=== PATIENT | female | born 1975 | race Caucasian/White ===

== ENCOUNTER 2019-12-24 04:39 | Emergency (ER) | payer MEDICAID ==
[~2019-12-24] VITALS: Ht 167.6 cm; Wt 87.0 kg
[2019-12-24] MEDS ORDERED: ONDANSETRON 4MG ODT PO STA (04:53)
[2019-12-24 05:14] LABS: CHLORIDE 108 mEq/L (98-107)
[2019-12-24 05:17] LABS: BASOPHILS % 0.2 % (0.0-2.0); EOSINOPHILS % 0.1 % (0.0-5.0); HEMATOCRIT. 34.4 % (36.0-48.0); HEMOGLOBIN. 10.7 g/dL (12.0-16.0); LYMPHOCYTES % 9.2 % (20.0-50.0); MEAN CORPUSCULAR HEMOGLOBIN 24.6 pg (28.0-32.0); MEAN CORPUSCULAR VOLUME 78.9 fL (81.0-99.0); MEAN PLATELET VOLUME 7.6 fl (7.4-10.4); NEUTROPHILS % 86.5 % (40.0-76.0); PLATELET 339 x1000/uL (130-400); RED BLOOD CELL COUNT 4.35 mill/uL (4.2-5.4); RED CELL DISTRIBUTION WIDTH 18.3 % (11.6-14.6)
[2019-12-24 05:18] LABS: ETHANOL BLOOD 206 mg/dL
[2019-12-24 05:50] LABS: CLARITY URINE CLEAR (CLEAR); COLOR URINE YELLOW (YELLOW); KETONES URINE NEGATIVE (NEGATIVE); LEUKOCYTE ESTERASE URINE NEGATIVE (NEGATIVE); NITRITE URINE NEGATIVE (NEGATIVE); OCCULT BLOOD URINE NEGATIVE (NEGATIVE); PROTEIN URINE NEGATIVE (NEGATIVE); UROBILINOGEN URINE 0.2 E.U./dL (0.2-1.0)
[2019-12-24 06:00] LABS: *AMPHETAMINES SCREEN URINE NEGATIVE (NEGATIVE)
[2019-12-24 06:01] LABS: *BARBITURATES SCREEN URINE NEGATIVE (NEGATIVE); *BENZODIAZEPINES SCREEN URINE NEGATIVE (NEGATIVE); *COCAINE SCREEN URINE NEGATIVE (NEGATIVE); METHADONE URINE SCREEN NEGATIVE (NEGATIVE); OPIATES URINE SCREEN NEGATIVE (NEGATIVE); PHENCYCLIDINE URINE SCREEN NEGATIVE (NEGATIVE)
[2019-12-24 06:02] LABS: CANNABINOID URINE SCREEN NEGATIVE (NEGATIVE)
[2019-12-24] MEDS ORDERED: SODIUM CHLORIDE 0.9% 1,000 ML IV ONE ×2 (06:45→08:30)
[2019-12-24] MEDS ORDERED: ACETAMINOPHEN 325MG TABLET PO ONE (06:45)
[2019-12-24] MEDS ORDERED: PHENAZOPYRIDINE HCL 100MG TABLET PO ONE (06:45)
[2019-12-24] MEDS ORDERED: CEPHALEXIN 250MG CAPSULE PO ONE (06:45)
[2019-12-24] MEDS ORDERED: CEFTRIAXONE 1 G PREMIX 50 ML IV ONE (09:00)
[2019-12-24 12:31] VITALS: BP 145/95
== END 2019-12-24 12:35 | disposition home or self-care (01) ==
LOC: ER 04:39
DX: R30.0 Dysuria (principal); E87.2 Acidosis; N39.0 Urinary tract infection, site not specified; F10.129 Alcohol abuse with intoxication, unspecified; Y90.7 Blood alcohol level of 200-239 mg/100 ml
CPT/HCPCS: 36415; 80053; 80305; 80320; 81003; 81025; 83605; 83690; 85025; 96361; 96365; 99285; J0696; J7030; Q0162; G0480

== ENCOUNTER 2023-11-12 16:35 | Emergency (ER) | payer SELFPAY ==
[~2023-11-12] VITALS: Ht 149.9 cm; Wt 86.0 kg
[~2023-11-12 16:35] MED LIST: IBUP-2030 PO; METR-167 PO
[2023-11-12 16:58] VITALS: O2SAT 100
[2023-11-12 17:23] LABS: HEMATOCRIT 32.7 % (36.0-48.0); MEAN CORPUSCULAR HEMOGLOBIN 21.8 pg (28.0-32.0); MEAN CORPUSCULAR HGB CONC 30.5 g/dL (31.0-37.0); MEAN CORPUSCULAR VOLUME 71.6 fL (81.0-99.0); PLATELET 405 x1000/uL (130-400); RED BLOOD CELL COUNT 4.57 mill/uL (4.2-5.4); RED CELL DISTRIBUTION WIDTH 22.3 % (11.6-14.6); WHITE BLOOD COUNT 9.8 x1000/uL (4.5-11.0)
[2023-11-12 17:30] LABS: CHLORIDE 101 mEq/L (98-107); POTASSIUM 3.4 mEq/L (3.5-5.1); SODIUM 137 mEq/L (136-145)
[2023-11-12 17:31] LABS: CARBON DIOXIDE 26 mEq/L (21-32)
[2023-11-12 17:32] LABS: CALCIUM 10.3 mg/dL (8.7-10.4)
[2023-11-12 17:36] LABS: CREATININE 0.8 mg/dL (0.6-1.0); GLUCOSE 117 mg/dL (70-105); UREA NITROGEN BLOOD 6 mg/dL (9-23)
[2023-11-12] MEDS ORDERED: LORAZEPAM 1MG TABLET PO ONE (19:15)
[2023-11-12] MEDS ORDERED: ACETAMINOPHEN 325MG TABLET PO ONE (19:15)
[2023-11-12] MEDS: CYCLOBENZAPRINE 10MG TABLET PO ONE (23:09)
[2023-11-12] MEDS: ACETAMINOPHEN 325MG TABLET PO NR (23:09)
[2023-11-12] MEDS: LORAZEPAM 1MG TABLET PO NR (23:09)
[2023-11-12] MEDS: KETOROLAC 15MG/ML VIAL IM ONE (23:09)
[2023-11-13 00:26] LABS: CLARITY URINE TURBID (CLEAR); COLOR URINE ORANGE (YELLOW); GLUCOSE URINE TRACE (NEGATIVE); KETONES URINE TRACE (NEGATIVE); LEUKOCYTE ESTERASE URINE 2+ (NEGATIVE); NITRITE URINE POSITIVE (NEGATIVE); OCCULT BLOOD URINE 2+ (NEGATIVE); PH URINE 5.5 (4.5-8.0); PROTEIN URINE 2+ (NEGATIVE)
[2023-11-13] MEDS ORDERED: NAPR-681 MT (00:41)
[2023-11-13 01:20] VITALS: BP 152/84; PULSE 87; RESP 14; TEMP 97.4
[2023-11-13 04:36] LABS: SQUAMOUS EPITHELIAL CELL URINE FEW /lpf (RARE/1+)
[2023-11-13 04:48] LABS: BACTERIA URINE 2+
== END 2023-11-13 01:25 | disposition home or self-care (01) ==
LOC: ER 16:35
DX: R55 Syncope and collapse (principal); M79.10 Myalgia, unspecified site; F41.9 Anxiety disorder, unspecified; J45.909 Unspecified asthma, uncomplicated; I10 Essential (primary) hypertension
CPT/HCPCS: 99285; 71045; 80048; 81003; 85027; 36415; 93005; 96372; J1885